=== PATIENT | male | born 1985 ===

== ENCOUNTER 2017-07-31 01:04 | Emergency (ER) | payer SELFPAY ==
[2017-07-31 01:26] VITALS: BP 140/98
[2017-07-31 02:03] LABS: Basophils # (Auto) 0.1 K/mm3 (0.0-0.1); Basophils % (Auto) 1.3 % (0.0-1.8); Eosinophils # (Auto) 0.1 K/mm3 (0.0-0.4); Eosinophils % (Auto) 0.8 % (0.0-4.3); Hematocrit 48.4 % (35.5-45.6); Lymphocytes # (Auto) 1.5 K/mm3 (1.2-5.4); Lymphocytes % (Auto) 16.4 % (13.4-35.0); Mean Corpuscular HGB Conc 33 % (32-34); Mean Corpuscular Hemoglobin 27 pg (28-32); Mean Corpuscular Volume 83 fl (84-94); Monocytes # (Auto) 0.6 K/mm3 (0.0-0.8); Monocytes % (Auto) 7.1 % (0.0-7.3); Platelet Count 228 K/mm3 (140-440); Red Blood Count 5.83 M/mm3 (3.65-5.03); Red Cell Distribution Width 13.6 % (13.2-15.2)
[2017-07-31 02:19] LABS: BUN/Creatinine Ratio 9; Blood Urea Nitrogen 8 mg/dL (9-20); Calcium 9.8 mg/dL (8.4-10.2); Hemolysis Index 20
[2017-07-31 02:20] LABS: Amorphous Crystals,Urine 1+; Bilirubin,Urine NEG (Negative); Blood,Urine NEG (Negative); Color,Urine Yellow (Yellow); Hyaline Casts,Urine 2 /LPF; Mucus,Urine FEW /HPF; Protein,Urine <15 mg/dL mg/dL (Negative); Urobilinogen,Urine < 2.0 mg/dL (<2.0)
[2017-07-31 02:26] LABS: Amphetamine Screen,Urine PRESUMPTIVE NEGATIVE; Benzodiazepines Screen,Urine PRESUMPTIVE NEGATIVE; Cannabinoid Screen,Urine PRESUMPTIVE NEGATIVE; Cocaine Screen,Urine PRESUMPTIVE NEGATIVE; Methadone Screen,Urine PRESUMPTIVE NEGATIVE; Opiate Screen,Urine PRESUMPTIVE NEGATIVE
== END 2017-07-31 02:05 | disposition left against medical advice (07) ==
LOC: ED 01:04
DX: R56.9 Unspecified convulsions (principal); Z53.21 Procedure and treatment not carried out due to patient leaving prior to being seen by health care provider
CPT/HCPCS: 36415; 80048; 80307; 81001; 85025

== ENCOUNTER 2017-09-30 03:12 | Inpatient (IN) | payer SELFPAY ==
[2017-09-30 05:47] LABS: Hematocrit 42.7 % (35.5-45.6); Hemoglobin 14.3 gm/dl (11.8-15.2); Mean Corpuscular HGB Conc 34 % (32-34); Mean Corpuscular Hemoglobin 28 pg (28-32); Mean Corpuscular Volume 83 fl (84-94); Platelet Count 186 K/mm3 (140-440); Red Blood Count 5.12 M/mm3 (3.65-5.03); Red Cell Distribution Width 13.9 % (13.2-15.2)
[2017-09-30] MEDS ORDERED: ZOFRAN IV ONE (07:47)
[2017-09-30] MEDS ORDERED: MORPHINE IV ONE (07:47)
--- NOTE | 2017-09-30 07:47 | Emergency Department Report ---
ED Abdominal Pain HPI - General Chief Complaint: Nausea/Vomiting/Diarrhea Stated Complaint: VOMITING Time Seen by Provider: 09/30/17 07:14 Source: patient Mode of arrival: Ambulatory Limitations: No Limitations - History of Present Illness Initial Comments: This is a 31-year-old male nontoxic, well nourished in appearance, no acute signs of distress presents to the ED with c/o of nausea, vomiting, and abdominal pain x2 days. Patient stated that vomit content is food. Patient denies any radiation of pain. Patient denies any urinary symptoms. Patient denies any chest pain, shortness of breathe, fever, chills, headache, stiff neck , back or flank pain. Patient describes abdominal pain diffuse as sharp and cramping. Patient denies any allergies. PMH includes seizures. MD Complaint: abdominal pain -: days(s) (2) Location: diffuse Radiation: none Migration to: no migration Severity scale (0 -10): 8 Quality: cramping, sharp Consistency: constant Improves With: nothing Worsens With: nothing Associated Symptoms: nausea, vomiting. denies: diarrhea, fever, chills, constipation, dysuria, hematemesis, hematochezia, melena, hematuria, anorexia, syncope - Related Data Allergies Allergy/AdvReac Type Severity Reaction Status Date / Time No Known Allergies Allergy Unverified 07/31/17 01:27 ED Review of Systems ROS: Stated complaint: VOMITING Other details as noted in HPI Constitutional: denies: chills, fever Eyes: denies: eye pain, eye discharge, vision change ENT: denies: ear pain, throat pain Respiratory: denies: cough, shortness of breath, wheezing Cardiovascular: denies: chest pain, palpitations Endocrine: no symptoms reported Gastrointestinal: abdominal pain, nausea, vomiting. denies: diarrhea, constipation Genitourinary: denies: urgency, dysuria Musculoskeletal: denies: back pain, joint swelling, arthralgia Skin: denies: rash, lesions Neurological: denies: headache, weakness, paresthesias Psychiatric: denies: anxiety, depression Hematological/Lymphatic: denies: easy bleeding, easy bruising ED Past Medical Hx - Past Medical History Previous Medical History?: Yes Hx Seizures: Yes (Takes Keppra) - Surgical History Past Surgical History?: No - Social History Smoking Status: Never Smoker ED Physical Exam - General Limitations: No Limitations General appearance: alert, in no apparent distress - Head Head exam: Present: atraumatic, normocephalic - Eye Eye exam: Present: normal appearance Pupils: Present: normal accommodation - ENT ENT exam: Present: normal exam, mucous membranes moist - Neck Neck exam: Present: normal inspection, full ROM. Absent: tenderness, meningismus, lymphadenopathy - Respiratory Respiratory exam: Present: normal lung sounds bilaterally. Absent: respiratory distress, wheezes, rales, rhonchi, stridor, chest wall tenderness, accessory muscle use, decreased breath sounds, prolonged expiratory - Cardiovascular Cardiovascular Exam: Present: regular rate, normal rhythm, normal heart sounds. Absent: bradycardia, tachycardia, irregular rhythm, systolic murmur, diastolic murmur, rubs, gallop - GI/Abdominal GI/Abdominal exam: Present: soft, tenderness (diffuse), normal bowel sounds. Absent: distended, guarding, rebound, rigid, diminished bowel sounds - Expanded GI/Abdominal Exam Expanded GI/Abdominal exam: Absent: psoas sign, obturator sign, heel tap sign, Tucker's sign, Rovsing's sign, tenderness at Mcburney's Point, ascites - Rectal Rectal exam: Present: deferred - Extremities Exam Extremities exam: Present: normal inspection, full ROM, normal capillary refill - Back Exam Back exam: Present: normal inspection, full ROM. Absent: tenderness, CVA tenderness (R), CVA tenderness (L), muscle spasm, paraspinal tenderness, vertebral tenderness, rash noted - Neurological Exam Neurological exam: Present: alert, oriented X3, normal gait - Psychiatric Psychiatric exam: Present: normal affect, normal mood - Skin Skin exam: Present: warm, dry, intact, normal color. Absent: rash ED Course Vital Signs 09/30/17 09/30/17 09/30/17 04:58 08:24 08:30 Temperature 98.5 F Pulse Rate 77 Respiratory 18 16 16 Rate Blood Pressure 146/97 O2 Sat by Pulse 98 99 Oximetry - Reevaluation(s) Reevaluation #1: 09/30/17 08:15 Patient is speaking in full sentences with no signs of distress noted. - Consultations Consultation #1: 09/30/17 08:30 Patient has been consulted with Dr. Nettles (hospitalist) about patient history , physical exam, and labs and CT report and accepts patient to admission. Consultation #2: 09/30/17 08:56 Dr. Phan called me and asked to bridge orders with regular diet to med/surg. ED Medical Decision Making - Lab Data Result diagrams: 09/30/17 05:30 09/30/17 05:30 - Medical Decision Making This is a 31-year-old female that presents with abdominal pain and nausea vomiting. Patient stable was examined by me. There is abdominal tenderness. No rebound tenderness. Labs obtained and changes in kidney function noted with GFR 36. and elevated creatinine. UA indicates UTI so patient received 1G of Rocephine. CT abdomen/pelvis without contrast obtained and dictated by the radiologist. Patient was consulted with hospitalist Dr. Nettles for admission acute kidney damage and accepted. Patient received morphine and Zofran IV for pain. At time of admission, the patient does not seem toxic or ill in appearance. No acute signs of distress noted. Patient agrees to admission treatment plan of care. No further questions noted by the patient. Critical care attestation.: If time is entered above; I have spent that time in minutes in the direct care of this critically ill patient, excluding procedure time. ED Disposition Clinical Impression: Acute kidney injury UTI (urinary tract infection) Qualifiers: Urinary tract infection type: site unspecified Hematuria presence: with hematuria Qualified Code(s): N39.0 - Urinary tract infection, site not specified Abdominal pain Qualifiers: Abdominal location: generalized Qualified Code(s): R10.84 - Generalized abdominal pain Nausea & vomiting Qualifiers: Vomiting type: unspecified Vomiting Intractability: non-intractable Qualified Code(s): R11.2 - Nausea with vomiting, unspecified Disposition: OP ADMIT IP TO THIS HOSP Is pt being admited?: Yes Condition: Stable Referrals: PRIMARY CARE, [Primary Care Provider] - 3-5 Days
[2017-09-30 07:51] LABS: Bacteria,Urine 1+ /HPF (Negative); Bilirubin,Urine NEG (Negative); Blood,Urine MOD (Negative); Color,Urine Yellow (Yellow); Mucus,Urine FEW /HPF; Urobilinogen,Urine < 2.0 mg/dL (<2.0)
[2017-09-30] MEDS ORDERED: cefTRIAXone 1 GM in NACL 0.9% 20 ML IV NR (07:54)
[2017-09-30 07:55] LABS: Amphetamine Screen,Urine PRESUMPTIVE NEGATIVE; Benzodiazepines Screen,Urine PRESUMPTIVE NEGATIVE; Cannabinoid Screen,Urine PRESUMPTIVE NEGATIVE; Cocaine Screen,Urine PRESUMPTIVE NEGATIVE; Methadone Screen,Urine PRESUMPTIVE NEGATIVE; Opiate Screen,Urine PRESUMPTIVE NEGATIVE
[2017-09-30] MEDS ORDERED: NACL 0.9% 1000 ML 1,000 ML IV ONE (08:56)
[2017-09-30] MEDS ORDERED: NACL 0.9% 1000 ML 1,000 ML IV SCH (09:00)
--- NOTE | 2017-09-30 10:27 | History and Physical Report ---
History of Present Illness Date of examination: 09/30/17 Date of admission: 09/30/17 09:00 Chief complaint: gen weakness, nausea ,vomiting History of present illness: Patient is 31yo with history of seizure disorder, presented with nausea, vomiting and abdominal pain for 3 days. Abdominal pain is mid abdomen, 8 out of 10 in intensity. Pain does not radiate and not related to food. He denied eating any new food. he denies having a fever. He stated that he vomited 3-4 times a day for 3 days. No fever. Symptoms were getting worse therefore came to ED for evaluation. In ED, he is found to have Urinary tract infection and acute kidney injury. Will admit. Past History Past Medical History: other (seizure disorder) Past Surgical History: Other (leg fracture, s/p cast) Social history: single, full code. denies: smoking, alcohol abuse, prescription drug abuse Family history: no significant family history Medications and Allergies Allergies Allergy/AdvReac Type Severity Reaction Status Date / Time No Known Allergies Allergy Unverified 07/31/17 01:27 Home Medications Medication Instructions Recorded Confirmed Last Taken Type levETIRAcetam [Keppra TAB] 500 mg PO BID 09/30/17 09/30/17 Unknown History Active Meds: Active Medications Sodium Chloride (Nacl 0.9% 1000 Ml) 1,000 mls @ 125 mls/hr IV DIRECT BRADEN Review of Systems All systems: negative (No fever, no headache, no chest pain. All other systems are reviewed and are negative) Exam - Physical Exam Narrative exam: General: Not in acute distress, lying in bed HEENT:Normocephalic, atraumatic Neck:supple,no JVD Lungs: Clear to auscultation bilaterally, no crackles, no wheeze Heart:S1 and S2 regular, no murmurs, rubs or gallop Abd: soft, non tender, non distended, normal bowel sounds Ext: No edema, no clubbing, no cyanosis Neuro: AAO x 3, moves all extremities. Skin: covered with multiple tattoos - Constitutional Vitals: Temp Pulse Resp BP Pulse Ox 98.5 F 70 16 140/90 98 09/30/17 10:05 09/30/17 10:05 09/30/17 10:05 09/30/17 10:09/30/17 10:05 Results - Labs CBC & Chem 7: 09/30/17 05:30 09/30/17 05:30 Labs: Abnormal lab results 09/30/17 09/30/17 09/30/17 Range/Units 05:19 05:30 05:30 RBC 5.12 H (3.65-5.03) M/mm3 MCV 83 L (84-94) fl Creatinine 2.2 H (0.8-1.5) mg/dL Urine WBC (Auto) 77.0 H (0.0-6.0) /HPF Assessment and Plan Acute kidney injury may be due to vasomotor nephropathy. Admit to med/surge strict fluid I/O Give NS at 125ml/hr Cr 2.2 today. Repeat in am Urinary tract infection. Ceftriaxone given in ED. Continue same. Obtain Urine culture Seizure disorder. Continue Keppra DVT Prophylaxis with heparin Full code status
--- NOTE | 2017-09-30 11:29 | Cat Scan Report ---
FINAL REPORT EXAM: CT ABDOMEN PELVIS WO CON HISTORY: nausea vomiting TECHNIQUE: CT images obtained through the Abdomen and Pelvis without contrast. Transaxial,coronal and sagittal reformats are provided. PRIORS: None. FINDINGS: Imaged intrathoracic contents are unremarkable. Kidneys are normal in size, axis and position. No hydronephrosis or nephrolithiasis. The ureters are normal in course and caliber. No stones are seen within the urinary bladder. The liver, gallbladder, pancreas, spleen, and adrenal glands demonstrate a normal noncontrast appearance. Hollow enteric organs are normal in course and caliber. Appendix is normal. No intra-abdominal free air/fluid or lymphadenopathy. Aorta is normal in course and caliber. Superficial soft tissues are unremarkable. No acute or aggressive appearing skeletal findings. IMPRESSION: No acute findings in the abdomen or pelvis.
[2017-09-30] MEDS ORDERED: TYLENOL PO PRN (12:45)
[2017-09-30] MEDS ORDERED: ZOFRAN IV PRN (12:45)
[2017-09-30] MEDS ORDERED: SODIUM CHLORIDE FLUSH SYRINGE 10 ML IV PRN (12:45)
[2017-09-30] MEDS ORDERED: NORCO 5/325 PO PRN (12:45)
[2017-09-30] MEDS ORDERED: KEPPRA PO SCH (17:00)
[2017-09-30] MEDS: SODIUM CHLORIDE FLUSH SYRINGE 10 ML IV SCH (22:00)
[2017-09-30] MEDS: KEPPRA PO SCH (22:00)
[2017-09-30] MEDS: HEPARIN SUB-Q SCH (22:00)
[2017-10-01 08:21] VITALS: BP 109/84
[2017-10-01 08:35] LABS: Basophils # (Auto) 0.1 K/mm3 (0.0-0.1); Basophils % (Auto) 1.1 % (0.0-1.8); Eosinophils # (Auto) 0.2 K/mm3 (0.0-0.4); Eosinophils % (Auto) 2.8 % (0.0-4.3); Hematocrit 40.3 % (35.5-45.6); Hemoglobin 13.5 gm/dl (11.8-15.2); Lymphocytes # (Auto) 1.6 K/mm3 (1.2-5.4); Lymphocytes % (Auto) 25.4 % (13.4-35.0); Mean Corpuscular HGB Conc 34 % (32-34); Mean Corpuscular Hemoglobin 28 pg (28-32); Mean Corpuscular Volume 83 fl (84-94); Monocytes # (Auto) 0.5 K/mm3 (0.0-0.8); Platelet Count 181 K/mm3 (140-440); Red Blood Count 4.85 M/mm3 (3.65-5.03)
[2017-10-01 08:46] LABS: BUN/Creatinine Ratio 7; Blood Urea Nitrogen 9 mg/dL (9-20); Calcium 7.7 mg/dL (8.4-10.2); Hemolysis Index 3
[2017-10-01] MEDS: HEPARIN SUB-Q SCH (09:17)
[2017-10-01] MEDS: SODIUM CHLORIDE FLUSH SYRINGE 10 ML IV SCH (09:17)
[2017-10-01] MEDS: KEPPRA PO SCH (09:17)
--- NOTE | 2017-10-01 11:30 | Discharge Summary ---
Providers - Providers Date of Admission: 09/30/17 09:00 Date of discharge: 10/01/17 Attending physician: CLEMENTINA MORALES Primary care physician: MANAGER [facility] Hospitalization Reason for admission: uti Condition: Stable Hospital course: Patient is 31yo with history of seizure disorder, presented with nausea, vomiting and abdominal pain for 3 days. Abdominal pain is mid abdomen, 8 out of 10 in intensity. Pain does not radiate and not related to food. He denied eating any new food. he denies having a fever. He stated that he vomited 3-4 times a day for 3 days. No fever. Symptoms were getting worse therefore came to ED for evaluation. In ED, he is found to have Urinary tract infection and acute kidney injury and admitted to the hospital. Patient received IV fluid hydration and IV antibiotics. The acute kidney injury was felt to be secondary to vasomotor nephropathy and resolved with IV fluid hydration. Patient will be discharged home with antibiotics. Dedicated discharge time 32 minutes. Disposition: DC- TO HOME OR SELFCARE Time spent for discharge: 32 - Discharge Diagnoses (1) Abdominal pain Status: Acute Qualifiers: Abdominal location: generalized Qualified Code(s): R10.84 - Generalized abdominal pain (2) Acute kidney injury Status: Acute (3) UTI (urinary tract infection) Status: Acute Qualifiers: Urinary tract infection type: site unspecified Hematuria presence: with hematuria Qualified Code(s): N39.0 - Urinary tract infection, site not specified; R31.9 - Hematuria, unspecified Core Measure Documentation - Palliative Care Palliative Care/ Comfort Measures: Not Applicable - Core Measures Any of the following diagnoses?: none Exam - Constitutional Vitals: Temp Pulse Resp BP Pulse Ox 98.5 F 70 20 109/84 97 10/01/17 07:18 10/01/17 07:18 10/01/17 07:18 10/01/17 07:18 10/01/17 07:18 General appearance: Present: no acute distress, well-nourished - EENT Eyes: Present: PERRL ENT: hearing intact, clear oral mucosa - Neck Neck: Present: supple, normal ROM - Respiratory Respiratory effort: normal Respiratory: bilateral: CTA - Cardiovascular Heart Sounds: Present: S1 & S2. Absent: rub, click - Extremities Extremities: pulses symmetrical, No edema Peripheral Pulses: within normal limits - Abdominal General gastrointestinal: Present: soft, non-tender, non-distended, normal bowel sounds Male genitourinary: Present: normal - Integumentary Integumentary: Present: clear, warm, dry - Musculoskeletal Musculoskeletal: gait normal, strength equal bilaterally - Psychiatric Psychiatric: appropriate mood/affect, intact judgment & insight - Neurologic Neurologic: CNII-XII intact, moves all extremities Plan Activity: no restrictions Weight Bearing Status: Full Weight Bearing Diet: regular Follow up with: PRIMARY CARE, [Primary Care Provider] - 3-5 Days Prescriptions: Ciprofloxacin HCl [Cipro] 500 mg PO BID #10 tablet
== END 2017-10-01 13:25 | disposition home or self-care (01) | DRG 689 ==
LOC: ED 03:12 → 3A 09:00
PROVIDERS: ADMIT Internal Medicine; ATTEND Hospitalist
DX: N39.0 Urinary tract infection, site not specified (principal); N17.0 Acute kidney failure with tubular necrosis; R19.7 Diarrhea, unspecified; G40.909 Epilepsy, unspecified, not intractable, without status epilepticus
CPT/HCPCS: 36415; 74176; 80048; 80307; 81001; 83690; 85025; 85027; 87086; 99285; J0696; J1644; J2270; J2405; J7030